=== PATIENT | female | born 1990 | race Caucasian/White ===

== ENCOUNTER 2023-10-23 07:59 | Day surgery (SDC) | payer OTHER ==
[2023-10-15 16:12] VITALS: BMI 24.7
[2023-10-23] MEDS ORDERED: Acetaminophen 500 MG TAB ONE (08:11)
[2023-10-23] MEDS ORDERED: Ketorolac Tromethamine 30 MG (1 mL) VIAL ONE (08:11)
[2023-10-23 08:43] LABS: #Basophils 0.05 10x3/uL (0.0-0.2); #Eosinphils 0.15 10x3/uL (0.0-0.5); #Monocytes 0.68 10x3/uL (0.0-1.1); #Neutrophils 7.08 10x3/uL (1.5-8.4); %Basophils 0.4 % (0.0-2.0); %Eosinophils 1.2 % (0.0-6.0); %Lymphocytes 38.4 % (18.0-47.0); %Monocytes 5.2 % (0.0-10.0); %Neutrophils 54.5 % (40.0-75.0); Hematocrit 38.9 % (34.9-44.5); Hemoglobin 13.2 g/dL (12.0-15.5); Mean Corpuscular HGB CONC 33.9 g/dL (32.0-36.0); Mean Corpuscular Hemoglobin 29.8 pg (27.0-33.0); Mean Corpuscular Volume 87.8 fL (81.6-98.3); Mean Platelet Volume 8.1 fL (7.4-10.4); Platelet Count 627 10x3/uL (150-450); RBC Distribution Width 12.9 % (11.5-14.5); Red Blood Cell (RBC) Count 4.43 10x6/uL (3.90-5.03)
[2023-10-23] MEDS ORDERED: PROPOFOL 20 ML ONE (10:26)
[2023-10-23] MEDS ORDERED: Lidocaine 2% PF 5 ML VIAL ONE (10:26)
[2023-10-23] MEDS ORDERED: Midazolam HCl 2 mg/2 ml Vial ONE (10:50)
[2023-10-23] MEDS ORDERED: Lidocaine 2% MPF 10 ML AMP (For Epidural Use) ONE (10:50)
[2023-10-23] MEDS ORDERED: Isosulfan Blue 50 MG/5 ML VIAL ONE (10:50)
[2023-10-23] MEDS ORDERED: EPINEPHrine 1 MG/ML VIAL ONE (10:50)
[2023-10-23] MEDS ORDERED: Bupivacaine 0.25% HCL 30 ML VIAL ONE (10:50)
[2023-10-23] MEDS ORDERED: fentaNYL 50 mcg/mL 1 mL Vial ONE (11:07)
[2023-10-23] MEDS ORDERED: Ondansetron PF 4 MG/2 ML Vial ONE (11:08)
[2023-10-23] MEDS ORDERED: Dexamethasone 4 mg/ml Vial ONE (11:08)
[2023-10-23] MEDS ORDERED: CEFAZOLIN 2 GM VIAL ONE (11:11)
[2023-10-23] MEDS ORDERED: Meperidine HCl/PF 25 MG (1 mL) VIAL ONE (12:30)
== END 2023-10-23 13:25 | disposition home or self-care (01) ==
LOC: CSHSDC 07:59
PROVIDERS: ATTEND Specialist
PROC: 0H9T0ZZ Drainage of Right Breast, Open Approach (ICD-10-PCS; principal; 2023-10-23)
DX: N61.1 Abscess of the breast and nipple (principal); N60.11 Diffuse cystic mastopathy of right breast; F17.200 Nicotine dependence, unspecified, uncomplicated; F41.9 Anxiety disorder, unspecified; F32.A Depression, unspecified; Z79.899 Other long term (current) drug therapy; Z88.8 Allergy status to other drugs, medicaments and biological substances; Z98.890 Other specified postprocedural states
CPT/HCPCS: 36415; 85025; 88305; 88312; J0171; J0665; J1100; J1885; J2001; J2175; J2250; J2405; J2704; J3010; Q9968